=== PATIENT | female | born 1995 | race Caucasian/White ===

== ENCOUNTER 2016-05-09 21:42 | Emergency (ER) | payer BC ==
[2016-05-09 23:39] VITALS: BP 120/76
--- NOTE | 2016-05-10 01:44 | ED ---
Lower Extremity - HPI Summary HPI Summary: 20 female presents complaining of lower left calf pain that began Friday. She has been seeing an certified athletic trainer at school who informed her if she had increased swelling she should go have it evaluated at the ED. Patient is worried she has a blood clot. Describes the pain to be a pressure in the posterior proximal calf that comes and goes. She has noticed that sitting for periods of time and then standing causes the pain to increase as well as walking up stairs or walking for long periods of time. The pain currently is a dull 2/10 however when it is at it's worse it is about a 5/10. Has not noticed any redness. States she measured her right calf to be 30cm at the widest part and her left calf to be 32cm today 05/09/16. She does take control but denies tobacco use and recent travel. Does however admit to some bed rest over the weekend due to being sick. Denies fever/chills, difficulty breathing and chest pain. She has not taken any medication for the pain. Denies numbness/ tingling. She does not play sports and denies any recent trauma or injury to her leg. - History of Current Complaint Chief Complaint: EDExtremityLower Stated Complaint: LEFT LEG INJURY Time Seen by Provider: 05/09/16 23:51 Hx Obtained From: Patient Onset/Duration: Days Severity Currently: Mild Pain Intensity: 3 Pain Scale Used: 0-10 Numeric Timing: Intermittent Location: Is Discrete @ - posterior left proximal calf Character Of Pain: Aching - pressure Associated Signs And Symptoms: Positive: Swelling. Negative: Redness, Bruising Aggravating Factor(s): Standing - after sitting for long periods of time Able to Bear Weight: Yes - Risk Factors DVT Risk Factors: Oral Contraceptives - Allergies/Home Medications Allergies/Adverse Reactions: Allergies Allergy/AdvReac Type Severity Reaction Status Date / Time No Known Allergies Allergy Verified 05/09/16 21:54 PMH/Surg Hx/FS Hx/Imm Hx Endocrine/Hematology History: Denies: Hx Anemia Cardiovascular History: Denies: Hx Hypertension Respiratory History: Denies: Hx Asthma Psychiatric History: Denies: Hx Anxiety - Surgical History Surgery Procedure, Year, and Place: none - Immunization History Immunizations Up to Date: Yes Infectious Disease History: No Infectious Disease History: Denies: Traveled Outside the [place] in Last 30 Days - Social History Alcohol Use: None Substance Use Type: Reports: None Smoking Status (MU): Never Smoked Tobacco Review of Systems Constitutional: Negative Eyes: Negative ENT: Negative Cardiovascular: Negative Respiratory: Negative Gastrointestinal: Negative Genitourinary: Negative Positive: Myalgia - left calf, Edema - left calf Skin: Negative Neurological: Negative Psychological: Normal All Other Systems Reviewed And Are Negative: Yes Physical Exam Triage Information Reviewed: Yes Vital Signs On Initial Exam: Initial Vitals Temp Pulse Resp BP Pulse Ox 98.3 F 81 16 146/84 100 05/09/16 21:54 05/09/16 21:54 05/09/16 21:54 05/09/16 21:54 05/09/16 21:54 not tachycardic or hypoxic Vital Signs Reviewed: Yes Appearance: Positive: Well-Appearing, No Pain Distress, Well-Nourished Skin: Positive: Warm, Skin Color Reflects Adequate Perfusion - <2 second cap refill, Dry. Negative: Erythema @ Head/Face: Positive: Normal Head/Face Inspection Eyes: Positive: Conjunctiva Clear ENT: Positive: Hearing grossly normal Neck: Positive: Supple, Nontender, No Lymphadenopathy Respiratory/Lung Sounds: Positive: Clear to Auscultation, Breath Sounds Present Cardiovascular: Positive: Normal, RRR, Pulses are Symmetrical in both Upper and Lower Extremities - 2+ pedal pulse bilaterally Musculoskeletal: Positive: Normal, Strength/ROM Intact, Other - non tender on palpation of left calf. no signs of edema, erythema or warmth when examined. not firm. negative garnica test. achilles tendon normal. no recent trauma or injury. no ecchymosis, crepitus or deformity noted.. Negative: Howard Sign Left , Howard Sign Right Neurological: Positive: Normal, Sensory/Motor Intact, Alert, Oriented to Person Place, Time, CN Intact II-III, Reflexes Intact, NV Bundle Intact Distally, Normal Gait Psychiatric: Positive: Normal Diagnostics - Vital Signs Vital Signs Temp Pulse Resp BP Pulse Ox 05/09/16 23:38 97.4 F 69 18 120/76 100 05/09/16 21:54 98.3 F 81 16 146/84 100 - Laboratory Lab Statement: Any lab studies that have been ordered have been reviewed, and results considered in the medical decision making process. - Ultrasound No standard instances Ultrasound Interpretation: No Acute Changes - left lower extremity Ultrasound Interpretation Completed By: Radiologist Lower Extremity Course/Dx - Course Course Of Treatment: patient will have US to rule out DVT. US was negative. Denied pain management at this time. aware of worsening signs and symptoms to seek medical attention promptly for. Instructed to try taking ibuprofen at home to help with pain and inflammation. - Diagnoses Differential Diagnosis/HQI/PQRI: Positive: Contusion, DVT, Phlebitis, Sprain, Strain, Tenosynovitis, Other - compartment syndrome Provider Diagnoses: Strain of calf muscle, Pain of left calf Discharge - Discharge Plan Condition: Stable Disposition: HOME Patient Education Materials: Muscle Strain (ED) Referrals: No Primary Care Phys,NOPCP [Primary Care Provider] - [facility] [Outside] Additional Instructions: Take OTC medication such as Aleve or Ibuprofen for pain. You may ice or heat compresses to help with pain and discomfort. Rest. If symptoms worsen such as increased swelling, difficulty breathing, chest pain, redness, warmth, tightening or firmness of your leg or increasing intensity of pain seek medical attention immediately.
--- NOTE | 2016-05-10 07:59 | RAD ---
INDICATION: LEFT lower extremity edema. COMPARISON: None. TECHNIQUE: Casiano scale, color Doppler, and spectral analysis of the deep veins of the LEFT lower extremity. Vessel compression, phasicity, and augmentation assessed. REPORT: The LEFT common femoral, great saphenous, profunda femoral, femoral, popliteal, peroneal, and posterior tibial veins are patent. Patency of the contralateral common femoral vein documented. IMPRESSION: No evidence for LEFT lower extremity deep venous thrombosis.
== END 2016-05-10 03:33 | disposition home or self-care (01) ==
LOC: ED 21:42
DX: S86.912A Strain of unspecified muscle(s) and tendon(s) at lower leg level, left leg, initial encounter (principal); M79.1 Myalgia; X58.XXXA Exposure to other specified factors, initial encounter; Y93.9 Activity, unspecified; Y92.89 Other specified places as the place of occurrence of the external cause; Y99.9 Unspecified external cause status
CPT/HCPCS: 99281